=== PATIENT | female | born 1995 | race Caucasian/White ===

== ENCOUNTER 2018-02-14 15:20 | Emergency (ER) | payer BC ==
--- NOTE | 2018-02-14 15:32 | UC ---
Ear Complaint HPI - HPI Summary HPI Summary: 22 yo female presents with ?insect bite to right ear. She says she was outside all day yesterday and thinks a mosquito bit her on the helix of her right ear. Today has had a lot of drainage from the area along with increased redness, pain , and swelling. Denies fever, chills, decreased hearing - History of Current Complaint Stated Complaint: RT EAR Time Seen by Provider: 02/14/18 15:31 Hx Obtained From: Patient Hx Last Menstrual Period: 04/09/16 Onset/Duration: Sudden Onset Severity Initially: Mild Severity Currently: Mild Pain Intensity: 4 Pain Scale Used: 0-10 Numeric - Allergies/Home Medications Allergies/Adverse Reactions: Allergies Allergy/AdvReac Type Severity Reaction Status Date / Time amoxicillin Allergy Rash Verified 02/14/18 15:36 Home Medications: Home Medications Desogestrel-Ethinyl Estradiol [Isibloom 28 Day Tablet] 1 each PO DAILY 02/14/18 [History Confirmed 02/14/18] PMH/Surg Hx/FS Hx/Imm Hx - Additional Past Medical History Additional PMH: ADHD Previously Healthy: Yes - Surgical History Surgical History: None - Family History Known Family History: Positive: None Negative: Cardiac Disease, Hypertension, Diabetes, Renal Disease, Respiratory Disease, Seizure Disorder, Blood Disorder - Social History Occupation: Student Lives: With Family Alcohol Use: None Substance Use Type: None Smoking Status (MU): Never Smoked Tobacco - Immunization History Vaccination Up to Date: Yes Review of Systems Constitutional: Negative Skin: Other - Right ear pain and swelling ?insect bite Eyes: Negative ENT: Negative Respiratory: Negative Cardiovascular: Negative Gastrointestinal: Negative Neurological: Negative Psychological: Negative All Other Systems Reviewed And Are Negative: Yes Physical Exam - Summary Physical Exam Summary: GENERAL: NAD. WDWN. No pain distress. SKIN: Right ear: At the helix there is moderate clear/yellow watery drainage. The pinna is moderately erythematous and edematous. HEENT: Head: AT/NC Eyes: EOM intact. Conjunctiva clear without inflammation or discharge. Ears: Hearing grossly normal. TMs intact, no bulging or erythema. Nose: Nasal mucosa pink and moist. NTTP maxillary and frontal sinus. Throat: Posterior oropharynx without exudates, erythema, or tonsillar enlargement. Uvula midline. NECK: Supple. Nontender. No lymphadenopathy. CHEST: No accessory muscle use. Breathing comfortably and in no distress. CV: Pulses intact. Brisk cap refill. NEURO: Alert. CN II-XII grossly intact. PSYCH: Age appropriate behavior. Triage Information Reviewed: Yes Ear Complaint Course/Dx - Course Course Of Treatment: Insect bite with localized cellulitis and drainage. Advised to apply ice and will start Keflex. - Differential Dx/Diagnosis Provider Diagnoses: Insect bite with cellulitis right ear Discharge - Sign-Out/Discharge Documenting (check all that apply): Discharge/Admit/Transfer - Discharge Plan Condition: Stable Disposition: HOME Prescriptions: Cephalexin CAP* [Keflex CAP*] 500 mg PO TID #15 cap Patient Education Materials: Insect Bite or Sting (ED) Referrals: Kyle Hernandez MD [Primary Care Provider] - Additional Instructions: If you develop a fever, shortness of breath, chest pain, new or worsening symptoms - please call your PCP or go to the ED. - Billing Disposition and Condition Condition: STABLE Disposition: HOME
[2018-02-14 15:37] VITALS: BP 117/71
== END 2018-02-14 15:46 | disposition home or self-care (01) ==
LOC: UCCORT 15:20
DX: H60.11 Cellulitis of right external ear (principal); W57.XXXA Bitten or stung by nonvenomous insect and other nonvenomous arthropods, initial encounter; Y93.9 Activity, unspecified; Y92.9 Unspecified place or not applicable; Z88.0 Allergy status to penicillin
CPT/HCPCS: 99212; G0463

== ENCOUNTER 2018-09-10 11:54 | Emergency (ER) | payer BC ==
--- NOTE | 2018-09-10 12:45 | UC ---
UC General HPI - HPI Summary HPI Summary: 2 day hx sore throat, sores in mouth and noted some L facial swelling that got better after motrin this am. - History of Current Complaint Stated Complaint: SORE THROAT Time Seen by Provider: 09/10/18 12:35 Hx Obtained From: Patient Hx Last Menstrual Period: 04/09/16 Onset/Duration: Gradual Onset Timing: Constant Associated Signs & Symptoms: Negative: Fever - Allergy/Home Medications Allergies/Adverse Reactions: Allergies Allergy/AdvReac Type Severity Reaction Status Date / Time amoxicillin Allergy Rash Verified 09/10/18 12:48 PMH/Surg Hx/FS Hx/Imm Hx Previously Healthy: No - ADHD - Surgical History Surgical History: None - Family History Known Family History: Positive: None Negative: Cardiac Disease, Hypertension, Diabetes, Renal Disease, Respiratory Disease, Seizure Disorder, Blood Disorder Family History: Patient believe she has no medical problems that run in her family. - Social History Occupation: Student Lives: With Family Alcohol Use: None Substance Use Type: None Smoking Status (MU): Never Smoked Tobacco Household Exposure Type: Cigarettes - Immunization History Vaccination Up to Date: Yes Review of Systems All Other Systems Reviewed And Are Negative: Yes Constitutional: Positive: Negative Skin: Positive: Negative Eyes: Positive: Negative ENT: Positive: Sore Throat Respiratory: Positive: Negative Cardiovascular: Positive: Negative Gastrointestinal: Positive: Negative Genitourinary: Positive: Negative Motor: Positive: Negative Neurovascular: Positive: Negative Musculoskeletal: Positive: Negative Neurological: Positive: Negative Psychological: Positive: Negative Physical Exam Triage Information Reviewed: Yes Appearance: Well-Appearing Vital Signs Reviewed: Yes Eyes: Positive: Conjunctiva Clear ENT: Positive: Pharyngeal erythema - mild, TMs normal, Other - ulceration soft palate, bucal mucosa and gums.. Negative: Nasal congestion, Nasal drainage, Trismus, Muffled voice, Hoarse voice, Uvula midline Dental: Negative: Percussion Tenderness @, Gross Decay/Caries @, Dental Fracture @, Abscess @ Neck: Positive: Supple, Tenderness @ - peritonsilar nodes that have slight swellin. no salivary/parotid gland swelling or tenderness. Respiratory: Positive: Lungs clear, Normal breath sounds Cardiovascular: Positive: RRR, No Murmur Abdomen Description: Positive: Nontender, No Organomegaly, Soft Bowel Sounds: Positive: Present Musculoskeletal: Positive: ROM Intact Neurological: Positive: Alert Psychological: Positive: Age Appropriate Behavior Skin Exam: Normal Diagnostics - Laboratory Diagnostic Studies Completed/Ordered: rapid strep=neg Course/Dx - Course Course Of Treatment: no hx htn, illnees/visit related - Differential Dx - Multi-Symptom Differential Diagnoses: Other - viral mouth infection, strep throat. - Diagnoses Provider Diagnosis: Canker sores oral Discharge - Sign-Out/Discharge Documenting (check all that apply): Patient Departure All imaging exams completed and their final reports reviewed: No Studies - Discharge Plan Condition: Stable Disposition: HOME Prescriptions: Magic Mouth Was-VIANEY/MAAL/LIDO* 5 ml SWISH SPIT QID #120 ml Patient Education Materials: Canker Sores (ED) Referrals: Kyle Hernandez MD [Primary Care Provider] - 7 Days - Billing Disposition and Condition Condition: STABLE Disposition: Home
[2018-09-10 12:48] VITALS: BP 142/93
== END 2018-09-10 13:10 | disposition home or self-care (01) ==
LOC: UCCORT 11:54
DX: K12.0 Recurrent oral aphthae (principal); Z88.0 Allergy status to penicillin
CPT/HCPCS: 87651; 99212; G0463

== ENCOUNTER 2018-10-05 14:28 | Emergency (ER) | payer BC ==
--- NOTE | 2018-10-05 15:00 | UC ---
UC General HPI - HPI Summary HPI Summary: PT C/O UTI. HX UTI'S. DESCRIBES FREQUENT-URGENT BURNING URINATION SINCE YESTERDAY. NO FEVER, ABDOMINAL PAIN OR RISK/CONCERN FOR PELVIC INFECTION. - History of Current Complaint Chief Complaint: UCGU Stated Complaint: URINARY Time Seen by Provider: 10/05/18 14:42 Hx Obtained From: Patient Hx Last Menstrual Period: 09/22/18 Onset/Duration: Gradual Onset Pain Intensity: 0 Associated Signs & Symptoms: Negative: Abdominal Pain, Fever - Allergy/Home Medications Allergies/Adverse Reactions: Allergies Allergy/AdvReac Type Severity Reaction Status Date / Time amoxicillin Allergy Rash Verified 10/05/18 14:40 Penicillins Allergy Rash Verified 10/05/18 14:40 PMH/Surg Hx/FS Hx/Imm Hx - Additional Past Medical History Additional PMH: UTI - Surgical History Surgical History: None - Family History Known Family History: Positive: None Negative: Cardiac Disease, Hypertension, Diabetes, Renal Disease, Respiratory Disease, Seizure Disorder, Blood Disorder Family History: Patient believe she has no medical problems that run in her family. - Social History Alcohol Use: Occasionally Substance Use Type: None Smoking Status (MU): Never Smoked Tobacco Household Exposure Type: Cigarettes - Immunization History Vaccination Up to Date: Yes Review of Systems All Other Systems Reviewed And Are Negative: Yes Constitutional: Positive: Negative Skin: Positive: Negative Eyes: Positive: Negative ENT: Positive: Negative Respiratory: Positive: Negative Cardiovascular: Positive: Negative Gastrointestinal: Positive: Negative Genitourinary: Positive: Dysuria, Frequency, Urgency. Negative: Hematuria, Vaginal/Penile Discharge Motor: Positive: Negative Neurovascular: Positive: Negative Musculoskeletal: Positive: Negative Neurological: Positive: Negative Psychological: Positive: Negative Is Patient Immunocompromised?: No Physical Exam Triage Information Reviewed: Yes Appearance: Well-Appearing Vital Signs: Initial Vital Signs Temp 98.2 F 10/05/18 14:41 Pulse 102 10/05/18 14:41 Resp 15 10/05/18 14:41 BP 145/86 10/05/18 14:41 Pulse Ox 99 10/05/18 14:41 Vital Signs Reviewed: Yes Eyes: Positive: Conjunctiva Clear ENT: Positive: Normal ENT inspection Neck: Positive: Supple Respiratory: Positive: Lungs clear, Normal breath sounds Cardiovascular: Positive: RRR, No Murmur Abdomen Description: Positive: Nontender, No Organomegaly, Soft. Negative: CVA Tenderness (R), CVA Tenderness (L), Distended, Guarding Bowel Sounds: Positive: Present Musculoskeletal: Positive: ROM Intact Neurological: Positive: Alert Psychological: Positive: Age Appropriate Behavior Skin Exam: Normal Diagnostics - Laboratory Diagnostic Studies Completed/Ordered: NO U/A, TOOK [employer]. URINE CULTURE PENDING. Course/Dx - Course Course Of Treatment: WILL TX FOR PRESUMPTIVE UTI. REPEAT BP IMPROVING AND NO HX HTN THUS VISIT RELATED. - Diagnoses Provider Diagnosis: Dysuria Discharge - Sign-Out/Discharge Documenting (check all that apply): Patient Departure All imaging exams completed and their final reports reviewed: No Studies - Discharge Plan Condition: Stable Disposition: HOME Prescriptions: Nitrofurantoin Monohyd/M-Cryst [Macrobid 100 mg Capsule] 100 mg PO BID 5 Days # 10 cap Patient Education Materials: Dysuria (ED) Referrals: Kyle Hernandez MD [Primary Care Provider] - 7 Days - Billing Disposition and Condition Condition: STABLE Disposition: Home
[2018-10-05 15:06] VITALS: BP 134/79
== END 2018-10-05 15:06 | disposition home or self-care (01) ==
LOC: UCCORT 14:28
DX: R30.0 Dysuria (principal); Z87.440 Personal history of urinary (tract) infections; Z88.0 Allergy status to penicillin
CPT/HCPCS: 87077; 87086; 87186; 99212; G0463